=== PATIENT | male | born 1990 ===

== ENCOUNTER 2017-10-29 19:10 | Emergency (ER) | payer OTHER ==
[2017-10-29 19:11] VITALS: BMI 29.7
[2017-10-29 19:49] VITALS: RESP 18; TEMP 98.5
[2017-10-29] MEDS ORDERED: Sodium Chloride 0.9% 1,000 ML IV STA (20:26)
[2017-10-29] MEDS ORDERED: Famotidine 20mg/50ml 20 MG/50 ML BAG IVPB STA (20:26)
[2017-10-29] MEDS ORDERED: Alum-Mag Hydrox-Simethicone Susp (30 mL) PO STA (20:37)
[2017-10-29] MEDS ORDERED: Atrop/Hyosc/Scopal/PB Elixir (120 ml) PO STA (20:37)
[2017-10-29 20:38] LABS: BASO # 0.02 K/mm3 (0.0-2.0); BASO % 0.2 % (0.0-3.0); EOS # 0.1 (0.0-0.7); EOS % 0.4 % (1.5-5.0); GRAN # 9.41 (1.4-6.5); GRAN % 75.8 % (50.0-68.0); HEMOGLOBIN 14.9 g/dL (14.0-18.0); LYMPH % 16.4 % (22.0-35.0); MEAN CELL VOLUME 87.7 fl (80.0-105.0); MEAN CORPUSCULAR HGB CONC 35.3 g/dl (31.0-37.0); MEAN PLATELET VOLUME 9.4 fl (7.0-11.0); MONO # 0.9 (0.1-0.6); MONO % 7.2 % (1.0-6.0); RBC 4.81 10^6/uL (3.5-6.1); RED CELL DISTRIBUTION WIDTH 12.1 % (11.5-14.5); WHITE BLOOD COUNT 12.4 10^3/ul (4.5-11.0)
--- NOTE | 2017-10-29 20:41 | ED PDOC ---
Arrival/HPI - General Chief Complaint: Abdominal Pain Time Seen by Provider: 10/29/17 20:25 Historian: Patient - History of Present Illness Narrative History of Present Illness (Text): 10/29/17 20:38 This 27 yo male with pmh chronic epigastric pain, presents to this ED c/o epigastric pain x 2 years. Patient stated epigastric pain has worsen within last 2-3 weeks. Patient has been taking ibuprofen for pain a few times before. Patient denies sob, cp, palpitation, rectal bleeding, fever, rash, dizziness, urinary symptoms, or abnormal gait. Time/Duration: Other (see hpi) Quality: Gas Like Context: Home Past Medical History - Provider Review Nursing Documentation Reviewed: Yes - Infectious Disease Hx of Infectious Diseases: None - Psychiatric Hx Psychophysiologic Disorder: No Hx Substance Use: No - Anesthesia Hx Anesthesia: No - Suicidal Assessment Feels Threatened In Home Enviroment: No Family/Social History - Physician Review Nursing Documentation Reviewed: Yes Family/Social History: Other (noncontributory) Smoking Status: Never Smoked Hx Alcohol Use: No Hx Substance Use: No Allergies/Home Meds Allergies/Adverse Reactions: Allergies No Known Allergies Allergy (Verified 10/29/17 19:46) Review of Systems - Review of Systems Constitutional: Normal. absent: Fatigue, Weight Change, Fevers Eyes: Normal ENT: Normal Respiratory: Normal Cardiovascular: Normal Gastrointestinal: Abdominal Pain. absent: Nausea, Vomiting Genitourinary Male: Normal Musculoskeletal: Normal Skin: Normal Neurological: Normal Endocrine: Normal Hemo/Lymphatic: Normal Psychiatric: Normal Physical Exam Vital Signs Temp Pulse Resp BP Pulse Ox 10/29/17 19:46 98.5 F 80 18 130/84 97 Temperature: Afebrile Blood Pressure: Normal Pulse: Regular Respiratory Rate: Normal Appearance: Positive for: Well-Appearing, Non-Toxic, Comfortable Pain Distress: None Mental Status: Positive for: Alert and Oriented X 3 - Systems Exam Head: Present: Atraumatic, Normocephalic Pupils: Present: PERRL Extroacular Muscles: Present: EOMI Conjunctiva: Present: Normal Mouth: Present: Moist Mucous Membranes Neck: Present: Normal Range of Motion Respiratory/Chest: Present: Clear to Auscultation, Good Air Exchange. No: Respiratory Distress, Accessory Muscle Use Cardiovascular: Present: Regular Rate and Rhythm, Normal S1, S2. No: Murmurs Abdomen: Present: Normal Bowel Sounds. No: Tenderness, Distention, Peritoneal Signs, Rebound, Guarding Back: Present: Normal Inspection Upper Extremity: Present: Normal Inspection. No: Cyanosis, Edema Lower Extremity: Present: Normal Inspection. No: Edema Neurological: Present: GCS=15, CN II-XII Intact, Speech Normal Skin: Present: Warm, Dry, Normal Color. No: Rashes Psychiatric: Present: Alert, Oriented x 3, Normal Insight, Normal Concentration Medical Decision Making ED Course and Treatment: 10/29/17 22:27 Patient stated epigastric pain has worsen despite medication. I recommended CT scan of Abdominal and Pelvis w/contrast. Morphine and Zofran were ordered. 10/30/17 01:50 Re-evaluation. Patient feels better. Discussed results and plan with patient who expresses understanding. All questions answered and there is agreement with the plan to discharge home with instructions. Patient stable for discharge. Return if symptoms persist or worsen. Re-evaluation Time: 01:50 Reassessment Condition: Re-examined, Improved - Lab Interpretations Lab Results: 10/29/17 20:30 10/29/17 20:30 Lab Results 10/29/17 20:30: Sodium 139, Potassium 3.9, Chloride 100, Carbon Dioxide 28, Anion Gap 15, BUN 13, Creatinine 0.8, Est GFR ( Amer) > 60, Est GFR (Non- Af Amer) > 60, Random Glucose 96, Calcium 9.4, Total Bilirubin 0.4, AST 36, ALT 46, Alkaline Phosphatase 49, Total Protein 8.2, Albumin 4.5, Globulin 3.6, Albumin/Globulin Ratio 1.3, Lipase 72 10/29/17 20:30: PT 12.1, INR 1.06, APTT 27.8 10/29/17 20:30: WBC 12.4 H, RBC 4.81, Hgb 14.9, Hct 42.2, MCV 87.7, MCH 31.0, MCHC 35.3, RDW 12.1, Plt Count 168, MPV 9.4, Gran % 75.8 H, Lymph % (Auto) 16.4 L, [place] % (Auto) 7.2 H, Eos % (Auto) 0.4 L, Baso % (Auto) 0.2, Gran # 9.41 H, Lymph # 2.0, [place] # 0.9 H, Eos # 0.1, Baso # 0.02 I have reviewed the lab results: Yes Interpretation: No clinic. lab abnormalty - RAD Interpretation Narrative RAD Interpretations (Text): 10/30/17 01:50 Formerly [facility] Division of Radiology [address] [address] Tel. no. Patient Name: SEBAS FOSTER Pt. Address: [address] [place] [address] Rec #: [id number] [place] [address]: Calin Lamas PA-C Pt Order Location: ED : 1990 Male Age: 27 Order #: [id number] Reason for exam: RUQ pain CT Scan ABD PELVIS IV CONTRAST ONLY Exam Date: 10/29/17 This imaging exam was performed at [facility] (Formerly [facility]) EXAM: CT Abdomen and Pelvis With Intravenous Contrast EXAM DATE/TIME: 10/29/2017 10:25 PM CLINICAL HISTORY: 27 years old, male; Pain; Abdominal pain; Flank; Right upper quadrant (ruq); Additional info: Ruq pain TECHNIQUE: Axial computed tomography images of the abdomen and pelvis with intravenous contrast. All CT scans at this facility use one or more dose reduction techniques, viz.: automated exposure control; ma/kV adjustment per patient size (including targeted exams where dose is matched to indication; i.e. head); or iterative reconstruction technique. Coronal and sagittal reformatted images were created and reviewed. CONTRAST: 141 mL of OMNI 350 administered intravenously. COMPARISON: There are no prior studies for comparison. FINDINGS: Lower thorax: Heart size is normal. There is dependent atelectasis at the lung bases. There is minimal scarring at the lung bases. ABDOMEN: Liver: There is fatty infiltration of the liver. Gallbladder and bile ducts: unremarkable Pancreas: unremarkable Spleen: Spleen is unremarkable. There is a tiny accessory spleen in the left upper quadrant. Adrenals: unremarkable Kidneys and ureters: unremarkable Stomach and bowel: Stomach is partially distended. Rotation is normal. There are mildly dilated small bowel loops in the right upper quadrant. There is no obstruction. There is fecalization of the terminal ileum. Appendix is unremarkable.Colon is incompletely distended which limits evaluation. Appendix: See stomach and bowel PELVIS: Bladder: unremarkable Reproductive: Seminal vesicles and prostate are unremarkable. ABDOMEN and PELVIS: Intraperitoneal space: There is no free air or free fluid. Bones/joints: There are no acute osseous abnormalities. Soft tissues: unremarkable Vasculature: Vascular structures are unremarkable. Lymph nodes: There is no pathologic adenopathy. IMPRESSION: No acute solid visceral abnormality; mildly dilated small bowel loops in the right upper quadrant suggest focal ileus; no CT findings of appendicitis Radiology Orders: 10/29/17 20:43 CHEST PORTABLE [RAD] Stat 10/29/17 22:25 ABD & PELVIS IV CONTRAST ONLY [CT] Stat - Medication Orders Current Medication Orders: Discontinued Medications Al Hydrox/Mg Hydrox/Simethicone (Maalox Plus 30 Ml) 30 ml PO STAT STA Stop: 10/29/17 20:38 Last Admin: 10/29/17 20:45 Dose: 30 ml Belladonna/Phenobarbital ( Elixir) 5 ml PO STAT STA Stop: 10/29/17 20:38 Last Admin: 10/29/17 20:45 Dose: 5 ml Famotidine (Pepcid 20mg/50ml Premix) 20 mg in 50 mls @ 100 mls/hr IVPB STAT STA Stop: 10/29/17 20:55 Last Admin: 10/29/17 20:36 Dose: 100 mls/hr eMAR Start Stop Document 10/29/17 20:36 JOL (Rec: 10/29/17 20:36 JOL [id number]) Intravenous Solution Start Date 10/29/17 Start Time 20:36 End Date 10/29/17 End time 21:36 Total Infusion Time 60 Sodium Chloride (Sodium Chloride 0.9%) 1,000 mls @ 999 mls/hr IV .Q1H1M STA Stop: 10/29/17 21:26 Last Admin: 10/29/17 20:36 Dose: 999 mls/hr eMAR Start Stop Document 10/29/17 20:36 JOL (Rec: 10/29/17 20:36 JOL [id number]) Intravenous Solution Start Date 10/29/17 Start Time 20:36 End Date 10/29/17 End time 20:37 Total Infusion Time 1 Ketorolac Tromethamine (Toradol) 30 mg IVP STAT STA Stop: 10/29/17 23:59 Lidocaine HCl (Lidocaine 2% Viscous) 5 ml PO STAT STA Stop: 10/29/17 20:38 Last Admin: 10/29/17 20:45 Dose: 5 ml Morphine Sulfate (Morphine) 4 mg IVP STAT STA Stop: 10/29/17 22:27 Last Admin: 10/29/17 22:42 Dose: 4 mg MAR Pain Assessment Document 10/29/17 22:42 JOL (Rec: 10/29/17 22:42 JOL [id number]) Pain Reassessment Is this a pain reassessment? No Sleep Is patient sleeping during reassessment? No Presence of Pain Presence of Pain Yes Pain Scale Used Pain Scale Used Numeric Description Intensity of Pain at present 8 IVP Administration Document 10/29/17 22:42 JOL (Rec: 10/29/17 22:42 JOL [id number]) Charges for Administration # of IVP Administrations 1 Ondansetron HCl (Zofran Inj) 4 mg IVP STAT STA Stop: 10/29/17 22:27 Last Admin: 10/29/17 22:42 Dose: 4 mg IVP Administration Document 10/29/17 22:42 JOL (Rec: 10/29/17 22:42 JOL [id number]) Charges for Administration # of IVP Administrations 1 Disposition/Present on Arrival - Present on Arrival Any Indicators Present on Arrival: No History of DVT/PE: No History of Uncontrolled Diabetes: No Urinary Catheter: No History of Decub. Ulcer: No History Surgical Site Infection Following: None - Disposition Have Diagnosis and Disposition been Completed?: Yes Diagnosis: Nonspecific abdominal pain Disposition: HOME/ ROUTINE Disposition Time: 01:51 Patient Plan: Transfer To Condition: GOOD Discharge Instructions (ExitCare): Abdominal Pain (ED) Additional Instructions: Call private doctor for follow up visit in 1-2 days. Take medication as instructed. Return to emergency if symptoms worsen. Avoid Ibuprofen, Naproxen , fatty meals, coffee, or alcohol. Prescriptions: Famotidine [Pepcid] 40 mg PO DAILY #10 tablet Referrals: Jayden Tsang MD [Primary Care Provider] - Follow up with primary Cristian Veras MD [Staff Provider] - Follow up with primary Forms: [employer] (Kiswahili), WORK NOTE
[2017-10-29 20:45] LABS: ALB/GLOB RATIO 1.3 (1.1-1.8); ALBUMIN 4.5 g/dL (3.0-4.8); ALT/SGPT 46 U/L (7-56); AST/SGOT 36 U/L (17-59); BLOOD UREA NITROGEN 13 mg/dL (7-21); CALCIUM 9.4 mg/dL (8.4-10.5); GFR AFRICAN-AMERICAN > 60; GFR NON-AFRICAN AMERICAN > 60; LIPASE 72 U/L (23-300)
[2017-10-29 21:18] LABS: INR 1.06 (0.93-1.08); PARTIAL THROMBOPLASTIN TIME 27.8 Seconds (25.1-36.5); PROTHROMBIN TIME 12.1 SECONDS (9.4-12.5)
[2017-10-29] MEDS ORDERED: Morphine 4 mg/ml ISec IVP STA (22:26)
[2017-10-29] MEDS ORDERED: Morphine 2 mg/ml ISec ONE (22:30)
--- NOTE | 2017-10-30 00:58 | CT ---
EXAM: CT Abdomen and Pelvis With Intravenous Contrast EXAM DATE/TIME: 10/29/2017 10:25 PM CLINICAL HISTORY: 27 years old, male; Pain; Abdominal pain; Flank; Right upper quadrant (ruq); Additional info: Ruq pain TECHNIQUE: Axial computed tomography images of the abdomen and pelvis with intravenous contrast. All CT scans at this facility use one or more dose reduction techniques, viz.: automated exposure control; ma/kV adjustment per patient size (including targeted exams where dose is matched to indication; i.e. head); or iterative reconstruction technique. Coronal and sagittal reformatted images were created and reviewed. CONTRAST: 141 mL of OMNI 350 administered intravenously. COMPARISON: There are no prior studies for comparison. FINDINGS: Lower thorax: Heart size is normal. There is dependent atelectasis at the lung bases. There is minimal scarring at the lung bases. ABDOMEN: Liver: There is fatty infiltration of the liver. Gallbladder and bile ducts: unremarkable Pancreas: unremarkable Spleen: Spleen is unremarkable. There is a tiny accessory spleen in the left upper quadrant. Adrenals: unremarkable Kidneys and ureters: unremarkable Stomach and bowel: Stomach is partially distended. Rotation is normal. There are mildly dilated small bowel loops in the right upper quadrant. There is no obstruction. There is fecalization of the terminal ileum. Appendix is unremarkable.Colon is incompletely distended which limits evaluation. Appendix: See stomach and bowel PELVIS: Bladder: unremarkable Reproductive: Seminal vesicles and prostate are unremarkable. ABDOMEN and PELVIS: Intraperitoneal space: There is no free air or free fluid. Bones/joints: There are no acute osseous abnormalities. Soft tissues: unremarkable Vasculature: Vascular structures are unremarkable. Lymph nodes: There is no pathologic adenopathy. IMPRESSION: No acute solid visceral abnormality; mildly dilated small bowel loops in the right upper quadrant suggest focal ileus; no CT findings of appendicitis Additional nonemergent findings as described above.
[2017-10-30 05:27] VITALS: BP 128/79; PULSE 79; O2SAT 98
--- NOTE | 2017-10-30 10:05 | RAD ---
HISTORY: epigastric pain COMPARISON: 05/22/2015 FINDINGS: LUNGS: No active pulmonary disease. PLEURA: No significant pleural effusion identified, no pneumothorax apparent. CARDIOVASCULAR: Normal. OSSEOUS STRUCTURES: No significant abnormalities. VISUALIZED UPPER ABDOMEN: Normal. OTHER FINDINGS: None. IMPRESSION: No active disease.
== END 2017-10-30 02:05 | disposition home or self-care (01) ==
LOC: ED 19:10
DX: R10.11 Right upper quadrant pain (principal)
CPT/HCPCS: 71045; 74177; 80053; 83690; 85025; 85610; 85730; 96365; 96375; 99284; J2270; J2405; J7040; Q9967